=== PATIENT | female | born 1995 | race American Indian/Alaskan Native ===

== ENCOUNTER 2017-12-31 18:32 | Emergency (ER) | payer OTHER ==
[2017-12-31] MEDS ORDERED: NACL 0.9% 1000 ML 1,000 ML IV ONE (20:52)
[2017-12-31 21:11] LABS: Basophils % (Auto) 0.2 % (0.0-1.8); Hematocrit 35.5 % (30.3-42.9); Hemoglobin 12.2 gm/dl (10.1-14.3); Lymphocytes # (Auto) 0.8 K/mm3 (1.2-5.4); Lymphocytes % (Auto) 7.3 % (13.4-35.0); Mean Corpuscular HGB Conc 35 % (30-34); Mean Corpuscular Hemoglobin 30 pg (28-32); Mean Corpuscular Volume 86 fl (79-97); Monocytes # (Auto) 1.1 K/mm3 (0.0-0.8); Monocytes % (Auto) 9.9 % (0.0-7.3); Platelet Count 210 K/mm3 (140-440); Red Blood Count 4.13 M/mm3 (3.65-5.03)
[2017-12-31 21:37] LABS: Alanine Aminotransferase 24 units/L (7-56); Albumin 4.1 g/dL (3.9-5); BUN/Creatinine Ratio 10; Blood Urea Nitrogen 7 mg/dL (7-17); Calcium 9.6 mg/dL (8.4-10.2); Hemolysis Index 3
[2017-12-31] MEDS ORDERED: ZOFRAN IV ONE (21:39)
[2017-12-31] MEDS ORDERED: TORADOL IV ONE (21:49)
--- NOTE | 2017-12-31 21:54 | Emergency Department Report ---
ED N/V/D HPI - General Chief complaint: Nausea/Vomiting/Diarrhea Stated complaint: CHEST PAIN/STOMACH/VOMITING Time Seen by Provider: 12/31/17 21:38 Source: patient Mode of arrival: Ambulatory Limitations: No Limitations - History of Present Illness Initial comments: Patient is a 22-year-old female who presents with nausea, vomiting, diarrhea 1 week . Patient states alert cough and nocturnal fever , sinus pressure, bilateral ear pain . Pain with swallowing unknown temp is 99.8 Fahrenheit in triage today . Patient states last by mouth intake yesterday . Last nausea vomiting this evening . There is no history of asthma or bronchitis MD complaint: nausea, vomiting Onset/Timin -: week(s) Description of Vomiting: food contents Description of Diarrhea: water Associated Abdominal Pain: Yes (cramping ) Location: LLQ, RLQ, flank Severity: moderate Pain Scale: 5 Quality: cramping, aching Consistency: intermittent Improves with: none Worsens with: eating, vomiting, movement Context: sick contacts Associated Symptoms: cough, fever/chills, headaches, malaise, nausea/vomiting - Related Data Previous Rx's Medication Instructions Recorded Last Taken Type Ciprofloxacin HCl [Cipro] 500 mg PO BID 10 Days #20 tablet 12/31/17 Unknown Rx Famotidine [Pepcid] 20 mg PO BID PRN #30 tablet 12/31/17 Unknown Rx Fluconazole [Diflucan] 150 mg PO ONCE #1 tablet 12/31/17 Unknown Rx Ibuprofen 800 mg PO TID PRN #30 tablet 12/31/17 Unknown Rx Allergies Allergy/AdvReac Type Severity Reaction Status Date / Time No Known Allergies Allergy Unverified 12/31/17 18:55 ED Review of Systems ROS: Stated complaint: CHEST PAIN/STOMACH/VOMITING Other details as noted in HPI Constitutional: chills, fever ENT: ear pain, throat pain, congestion Respiratory: cough Cardiovascular: denies: chest pain, palpitations Endocrine: no symptoms reported Gastrointestinal: nausea, vomiting, diarrhea Genitourinary: denies: urgency, dysuria, frequency, hematuria, discharge Musculoskeletal: back pain. denies: joint swelling, arthralgia Skin: denies: rash, lesions Neurological: headache. denies: weakness, numbness, paresthesias, confusion, abnormal gait, vertigo Psychiatric: denies: anxiety, depression Hematological/Lymphatic: denies: easy bleeding, easy bruising ED Past Medical Hx - Past Medical History Previous Medical History?: No - Surgical History Past Surgical History?: No - Social History Smoking Status: Current Every Day Smoker Substance Use Type: None - Medications Home Medications: Home Medications Medication Instructions Recorded Confirmed Last Taken Type Ciprofloxacin HCl [Cipro] 500 mg PO BID 10 Days #20 tablet 12/31/17 Unknown Rx Famotidine [Pepcid] 20 mg PO BID PRN #30 tablet 12/31/17 Unknown Rx Fluconazole [Diflucan] 150 mg PO ONCE #1 tablet 12/31/17 Unknown Rx Ibuprofen 800 mg PO TID PRN #30 tablet 12/31/17 Unknown Rx ED Physical Exam - General Limitations: No Limitations General appearance: alert, in no apparent distress - Head Head exam: Present: atraumatic, normocephalic - Eye Eye exam: Present: normal appearance, PERRL, EOMI Pupils: Present: normal accommodation - ENT ENT exam: Present: mucous membranes moist - Expanded ENT Exam Expanded Ear exam: Present: normal external inspection TM/Canal exam: Erythema: Right TM, Left TM, Canal Tenderness: Right TM, Left TM Mouth exam: Present: other (clear post nasal drip ). Absent: trismus Teeth exam: Present: normal inspection Throat exam: Positive: tonsillar erythema. Negative: tonsillomegaly, tonsillar exudate, R peritonsillar mass, L peritonsillar mass - Neck Neck exam: Present: normal inspection, full ROM. Absent: tenderness, meningismus, lymphadenopathy, thyromegaly - Respiratory Respiratory exam: Present: normal lung sounds bilaterally. Absent: respiratory distress, wheezes, rhonchi, stridor, chest wall tenderness - Cardiovascular Cardiovascular Exam: Present: regular rate, normal rhythm, normal heart sounds. Absent: systolic murmur, diastolic murmur, rubs, gallop - GI/Abdominal GI/Abdominal exam: Present: soft, normal bowel sounds. Absent: tenderness, bruit, hernia - Rectal Rectal exam: Present: deferred - Extremities Exam Extremities exam: Present: normal inspection, normal capillary refill - Back Exam Back exam: Present: normal inspection, full ROM. Absent: tenderness, CVA tenderness (R), CVA tenderness (L), muscle spasm, paraspinal tenderness, vertebral tenderness, rash noted - Neurological Exam Neurological exam: Present: alert, oriented X3, CN II-XII intact, normal gait - Psychiatric Psychiatric exam: Present: normal affect, normal mood - Skin Skin exam: Present: warm, dry, intact, normal color. Absent: rash ED Course Vital Signs 12/31/17 18:52 Temperature 99.8 F H Pulse Rate 105 H Respiratory 16 Rate Blood Pressure 111/70 O2 Sat by Pulse 97 Oximetry ED Medical Decision Making - Lab Data Result diagrams: 12/31/17 20:56 12/31/17 20:56 Laboratory Tests 12/31/17 12/31/17 12/31/17 20:56 20:56 20:56 WBC 11.5 H RBC 4.13 Hgb 12.2 Hct 35.5 MCV 86 MCH 30 MCHC 35 H RDW 13.0 L Plt Count 210 Lymph % (Auto) 7.3 L [place] % (Auto) 9.9 H Eos % (Auto) 0.0 Baso % (Auto) 0.2 Lymph # 0.8 L [place] # 1.1 H Eos # 0.0 Baso # 0.0 Seg Neutrophils % 82.6 H Seg Neutrophils # 9.5 H Sodium 136 L Potassium 3.5 L Chloride 95.8 L Carbon Dioxide 25 Anion Gap 19 BUN 7 Creatinine 0.7 Estimated GFR > 60 BUN/Creatinine Ratio 10 Glucose 103 H Calcium 9.6 Total Bilirubin 1.00 AST 33 ALT 24 Alkaline Phosphatase 90 Total Protein 8.7 H Albumin 4.1 Albumin/Globulin Ratio 0.9 HCG, Qual Negative Urine Color Urine Turbidity Urine pH Ur Specific [place] Urine Protein Urine Glucose (UA) Urine Ketones Urine Blood Urine Nitrite Urine Bilirubin Urine Urobilinogen Ur Leukocyte Esterase Urine WBC (Auto) Urine RBC (Auto) U Epithel Cells (Auto) Urine Bacteria (Auto) Urine Mucus 12/31/17 21:45 WBC RBC Hgb Hct MCV MCH MCHC RDW Plt Count Lymph % (Auto) [place] % (Auto) Eos % (Auto) Baso % (Auto) Lymph # [place] # Eos # Baso # Seg Neutrophils % Seg Neutrophils # Sodium Potassium Chloride Carbon Dioxide Anion Gap BUN Creatinine Estimated GFR BUN/Creatinine Ratio Glucose Calcium Total Bilirubin AST ALT Alkaline Phosphatase Total Protein Albumin Albumin/Globulin Ratio HCG, Qual Urine Color [place] Urine Turbidity Cloudy Urine pH 5.0 Ur Specific [place] 1.021 Urine Protein 100 mg/dl Urine Glucose (UA) Neg Urine Ketones 20 Urine Blood Mod Urine Nitrite Pos Urine Bilirubin Neg Urine Urobilinogen 4.0 Ur Leukocyte Esterase Mod Urine WBC (Auto) 161.0 H Urine RBC (Auto) 26.0 U Epithel Cells (Auto) 13.0 Urine Bacteria (Auto) 4+ Urine Mucus 3+ - Medical Decision Making pt is a 22-year-old -[place] female with UTI . Mild dehydration . Symptoms are improved with medications given in ED presents tolerating by mouth intake without nausea, vomiting at this time . There is no fever or chills. No vaginal pain, no vaginal bleeding , no dysuria or flow. Problem no marked CVA tenderness. This is not likely renal stone . No ST symptoms . Plan treat for UTI, Rocephin 1 g IV piggyback DC'd home Cipro by mouth twice a day 10 days , diflucan and pt gets Yeast infection with abx , ibuprofen, follow up with pcp in 2-3 days, this is not pyelonephritis, or renal stones as there is no hematuria, no fever, no flow problem, no cva tenderness. Patient will continue to hydrate , follow with PCP in 2-3 days. Critical care attestation.: If time is entered above; I have spent that time in minutes in the direct care of this critically ill patient, excluding procedure time. ED Disposition Clinical Impression: UTI (urinary tract infection) Qualifiers: Urinary tract infection type: acute cystitis Hematuria presence: without hematuria Qualified Code(s): N30.00 - Acute cystitis without hematuria Disposition: TO HOME OR SELFCARE Is pt being admited?: No Does the pt Need Aspirin: No Condition: Stable Prescriptions: Ciprofloxacin HCl [Cipro] 500 mg PO BID 10 Days #20 tablet Famotidine [Pepcid] 20 mg PO BID PRN #30 tablet PRN Reason: Nausea And Vomiting Fluconazole [Diflucan] 150 mg PO ONCE #1 tablet Ibuprofen 800 mg PO TID PRN #30 tablet PRN Reason: pain fever Referrals: PRIMARY CARE, [Primary Care Provider] - 3-5 Days Forms: Work/School Release Form(ED) Time of Disposition: 23:02
[2017-12-31 22:08] LABS: Bacteria,Urine 4+ /HPF (Negative); Bilirubin,Urine NEG (Negative); Blood,Urine MOD (Negative); Color,Urine Amber (Yellow); Mucus,Urine 3+ /HPF
[2017-12-31] MEDS ORDERED: ROCEPHIN/NS 1 GM/50 ML 1 GM/50 ML BAG IV ONE (22:30)
[2017-12-31 23:33] VITALS: BP 122/72
== END 2017-12-31 23:31 | disposition home or self-care (01) ==
LOC: ED 18:32
DX: N30.00 Acute cystitis without hematuria (principal); F17.200 Nicotine dependence, unspecified, uncomplicated
CPT/HCPCS: 36415; 80053; 81001; 84703; 85025; 96365; 96375; 99283; J0696; J1885; J2405; J7030

== ENCOUNTER 2018-08-15 12:47 | Emergency (ER) | payer OTHER ==
[2018-08-15 13:17] VITALS: BP 115/69
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
[2018-08-15] MEDS ORDERED: NORCO 5/325 PO ONE (14:37)
[2018-08-15] MEDS ORDERED: IBUPROFEN PO ONE (14:37)
--- NOTE | 2018-08-15 14:37 | XRay Report ---
PROCEDURE: XR RIBS BILAT W/PA CHEST 4+V TECHNIQUE: Bilateral rib radiographs, minimum of 4 views, including PA projection. HISTORY: bilateral rib pain COMPARISONS: None . FINDINGS: Heart: Normal . Mediastinum/Vessels: Normal . Lungs: Normal . Pleural space: Normal . Pneumothorax: None . Bony thorax/ribs: No acute or displaced rib fractures. IMPRESSION: No acute abnormality is seen . This document is electronically signed by Rosy Hoskins MD., August 15 2018 03:35:29 PM ET
== END 2018-08-15 14:45 | disposition home or self-care (01) ==
LOC: ED 12:47
DX: S20.212A Contusion of left front wall of thorax, initial encounter (principal); M79.18 Myalgia, other site; I10 Essential (primary) hypertension; F12.10 Cannabis abuse, uncomplicated; F17.200 Nicotine dependence, unspecified, uncomplicated; Y04.8XXA Assault by other bodily force, initial encounter; Y93.89 Activity, other specified; Y92.89 Other specified places as the place of occurrence of the external cause; Y99.8 Other external cause status
CPT/HCPCS: 71111

== ENCOUNTER 2018-11-09 11:17 | Emergency (ER) | payer OTHER ==
--- NOTE | 2018-11-09 11:44 | Event Note ---
ED Screening Note Date of service: 11/09/18 Time: 11:39 ED Screening Note: 23 y o female presents with bite to right thigh and vaginal swelling and d/c states took benadryl last night and got a rash all over body This initial assessment/diagnostic orders/clinical plan/treatment(s) is/are subject to change based on patients health status, clinical progression and re- assessment by fellow clinical providers in the ED. Further treatment and workup at subsequent clinical providers discretion. Patient/guardian urged not to elope from the ED as their condition may be serious if not clinically assessed and managed. Initial orders include:
[2018-11-09] MEDS ORDERED: DECADRON IM ONE (11:45)
[2018-11-09] MEDS ORDERED: ATARAX PO ONE (12:45)
[2018-11-09] MEDS ORDERED: TYLENOL #3 PO ONE (14:08)
[2018-11-09] MEDS ORDERED: ZOFRAN ODT PO ONE ×2 (14:08→14:14)
[2018-11-09] MEDS ORDERED: ROCEPHIN IM ONE (14:13)
[2018-11-09] MEDS ORDERED: XYLOCAINE 1% MPF 5 mL INFILTRATI ONE (14:13)
--- NOTE | 2018-11-09 14:13 | Emergency Department Report ---
ED General Adult HPI - General Chief complaint: Skin Rash Stated complaint: VAGINAL ISSUE/BACK PAIN Time Seen by Provider: 11/09/18 11:38 Source: patient Mode of arrival: Ambulatory Limitations: No Limitations - History of Present Illness Initial comments: Patient presents to the emergency department with a chief complaint of an insect bite to her right thigh that occurred this morning. Patient also complains of some dysuria and painful lesions to her vagina. Patient also complains of some vaginal discharge and concerns for STDs -: Gradual Consistency: constant Improves with: none Worsens with: none Associated Symptoms: denies other symptoms Treatments Prior to Arrival: none - Related Data Previous Rx's Medication Instructions Recorded Last Taken Type Ciprofloxacin HCl [Cipro] 500 mg PO BID 10 Days #20 tablet 12/31/17 Unknown Rx Famotidine [Pepcid] 20 mg PO BID PRN #30 tablet 12/31/17 Unknown Rx Fluconazole [Diflucan] 150 mg PO ONCE #1 tablet 12/31/17 Unknown Rx Ibuprofen 800 mg PO TID PRN #30 tablet 12/31/17 Unknown Rx Dicyclomine [Bentyl] 40 mg PO Q8H 3 Days #9 tablet 04/09/18 Unknown Rx Famotidine [Pepcid] 20 mg PO BID 5 Days #10 tablet 04/09/18 Unknown Rx Ondansetron [Zofran ODT TAB] 8 mg PO Q8HR PRN #12 tab.rapdis 04/09/18 Unknown Rx HYDROcodone/APAP 5-325 [[place] 1 each PO Q6HR PRN #10 tablet 08/15/18 Unknown Rx 5/325] Ibuprofen [Motrin 800 MG tab] 800 mg PO Q8HR PRN #15 tablet 08/15/18 Unknown Rx Acetaminophen/Codeine [Tylenol 1 tab PO Q6H PRN #15 tab 11/09/18 Unknown Rx /Codeine # 3 tab] Acyclovir [Zovirax Tab] 400 mg PO Q8H #30 tab 11/09/18 Unknown Rx Fluconazole [Diflucan TAB] 150 mg PO ONCE #1 tablet 11/09/18 Unknown Rx Sulfamethoxazole/Trimethoprim 2 each PO BID #28 tablet 11/09/18 Unknown Rx [Bactrim DS TAB] Allergies Allergy/AdvReac Type Severity Reaction Status Date / Time No Known Allergies Allergy Verified 08/15/18 12:49 ED Review of Systems ROS: Stated complaint: VAGINAL ISSUE/BACK PAIN Other details as noted in HPI Comment: All other systems reviewed and negative Constitutional: denies: chills, fever Eyes: denies: eye pain, eye discharge, vision change ENT: denies: ear pain, throat pain Respiratory: denies: cough, shortness of breath, wheezing Cardiovascular: denies: chest pain, palpitations Endocrine: no symptoms reported Gastrointestinal: denies: abdominal pain, nausea, diarrhea Genitourinary: denies: urgency, dysuria, discharge Musculoskeletal: denies: back pain, joint swelling, arthralgia Skin: denies: rash, lesions Neurological: denies: headache, weakness, paresthesias Psychiatric: denies: anxiety, depression Hematological/Lymphatic: denies: easy bleeding, easy bruising ED Past Medical Hx - Past Medical History Previous Medical History?: Yes Hx Hypertension: Yes (no meds) - Surgical History Past Surgical History?: No - Social History Smoking Status: Never Smoker Substance Use Type: None - Medications Home Medications: Home Medications Medication Instructions Recorded Confirmed Last Taken Type Ciprofloxacin HCl [Cipro] 500 mg PO BID 10 Days #20 tablet 12/31/17 Unknown Rx Famotidine [Pepcid] 20 mg PO BID PRN #30 tablet 12/31/17 Unknown Rx Fluconazole [Diflucan] 150 mg PO ONCE #1 tablet 12/31/17 Unknown Rx Ibuprofen 800 mg PO TID PRN #30 tablet 12/31/17 Unknown Rx Dicyclomine [Bentyl] 40 mg PO Q8H 3 Days #9 tablet 04/09/18 Unknown Rx Famotidine [Pepcid] 20 mg PO BID 5 Days #10 tablet 04/09/18 Unknown Rx Ondansetron [Zofran ODT TAB] 8 mg PO Q8HR PRN #12 tab.rapdis 04/09/18 Unknown Rx HYDROcodone/APAP 5-325 [[place] 1 each PO Q6HR PRN #10 tablet 08/15/18 Unknown Rx 5/325] Ibuprofen [Motrin 800 MG tab] 800 mg PO Q8HR PRN #15 tablet 08/15/18 Unknown Rx Acetaminophen/Codeine [Tylenol 1 tab PO Q6H PRN #15 tab 11/09/18 Unknown Rx /Codeine # 3 tab] Acyclovir [Zovirax Tab] 400 mg PO Q8H #30 tab 11/09/18 Unknown Rx Fluconazole [Diflucan TAB] 150 mg PO ONCE #1 tablet 11/09/18 Unknown Rx Sulfamethoxazole/Trimethoprim 2 each PO BID #28 tablet 11/09/18 Unknown Rx [Bactrim DS TAB] ED Physical Exam - General Limitations: No Limitations General appearance: alert, in no apparent distress - Head Head exam: Present: atraumatic, normocephalic - Eye Eye exam: Present: normal appearance - ENT ENT exam: Present: mucous membranes moist - Neck Neck exam: Present: normal inspection - Respiratory Respiratory exam: Present: normal lung sounds bilaterally. Absent: respiratory distress - Cardiovascular Cardiovascular Exam: Present: regular rate, normal rhythm. Absent: systolic murmur, diastolic murmur, rubs, gallop - GI/Abdominal GI/Abdominal exam: Present: soft, normal bowel sounds. 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 Absent: motor sensory deficit - Psychiatric Psychiatric exam: Present: normal affect, normal mood - Skin Skin exam: Present: warm, dry, intact, normal color, other (Draining abscess of the right thigh with surrounding cellulitis) ED Course Vital Signs 11/09/18 11:35 Temperature 98.6 F Pulse Rate 75 Respiratory 18 Rate Blood Pressure 112/74 O2 Sat by Pulse 100 Oximetry ED Medical Decision Making - Medical Decision Making discussed results with patient Critical care attestation.: If time is entered above; I have spent that time in minutes in the direct care of this critically ill patient, excluding procedure time. ED Disposition Clinical Impression: Cellulitis, Dysuria, Vaginal discharge, Vaginal lesion Disposition: DC- TO HOME OR SELFCARE Is pt being admited?: No Does the pt Need Aspirin: No Condition: Stable Instructions: Safe Sex (ED), Sexually Transmitted Diseases (ED), Genital Herpes Simplex (ED) Additional Instructions: return if worse Prescriptions: Sulfamethoxazole/Trimethoprim [Bactrim DS TAB] 2 each PO BID #28 tablet Fluconazole [Diflucan TAB] 150 mg PO ONCE #1 tablet Acyclovir [Zovirax Tab] 400 mg PO Q8H #30 tab Referrals: PRIMARY CARE, [Primary Care Provider] - 3-5 Days
[2018-11-09] MEDS ORDERED: ZITHROMAX PO ONE (14:14)
[2018-11-09] MEDS ORDERED: FLAGYL PO ONE (14:14)
[2018-11-09 14:40] LABS: Bilirubin,Urine NEG (Negative); Blood,Urine NEG (Negative); Color,Urine Yellow (Yellow); Mucus,Urine FEW /HPF; Protein,Urine <15 mg/dL mg/dL (Negative)
[2018-11-09 14:47] LABS: HCG Qualitative,Urine Negative (Negative)
[2018-11-09 14:52] VITALS: BP 133/68
== END 2018-11-09 14:50 | disposition home or self-care (01) ==
LOC: ED 11:17
DX: N76.2 Acute vulvitis (principal); R30.0 Dysuria; L02.415 Cutaneous abscess of right lower limb; L03.115 Cellulitis of right lower limb; I10 Essential (primary) hypertension; Z79.899 Other long term (current) drug therapy
CPT/HCPCS: 81001; 81025; 96372; 99283; J0696; J1100; Q0162

== ENCOUNTER 2019-04-03 10:53 | Emergency (ER) | payer OTHER ==
[2019-04-03 11:06] VITALS: BP 130/77
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
== END 2019-04-03 11:51 | disposition left against medical advice (07) ==
LOC: ED 10:53
DX: M79.10 Myalgia, unspecified site (principal)
CPT/HCPCS: 99281

== ENCOUNTER 2019-05-29 05:18 | Emergency (ER) | payer OTHER ==
[2019-05-29 05:29] VITALS: BP 104/64
[2019-05-29 05:50] LABS: Basophils # (Auto) 0.1 K/mm3 (0.0-0.1); Basophils % (Auto) 0.9 % (0.0-1.8); Eosinophils # (Auto) 0.1 K/mm3 (0.0-0.4); Eosinophils % (Auto) 1.3 % (0.0-4.3); Hematocrit 39.9 % (30.3-42.9); Hemoglobin 12.9 gm/dl (10.1-14.3); Lymphocytes # (Auto) 2.5 K/mm3 (1.2-5.4); Lymphocytes % (Auto) 28.6 % (13.4-35.0); Mean Corpuscular HGB Conc 32 % (30-34); Mean Corpuscular Volume 90 fl (79-97); Monocytes # (Auto) 0.5 K/mm3 (0.0-0.8); Monocytes % (Auto) 5.3 % (0.0-7.3); Platelet Count 293 K/mm3 (140-440); Red Blood Count 4.42 M/mm3 (3.65-5.03); Red Cell Distribution Width 14.2 % (13.2-15.2)
[2019-05-29] MEDS ORDERED: FAMOTIDINE 20 MG TAB PO ONE (06:26)
[2019-05-29] MEDS ORDERED: ONDANSETRON 4 MG ODT TAB PO ONE (06:26)
[2019-05-29] MEDS ORDERED: ACETAMINOPHEN 500 MG TAB PO ONE (06:26)
[2019-05-29] MEDS ORDERED: SODIUM CHLORIDE 0.9% 1000 ML 1,000 ML IV ONE (06:34)
[2019-05-29 06:37] LABS: Bilirubin,Urine NEG (Negative); Blood,Urine LG (Negative); Color,Urine Yellow (Yellow); RBC,Urine > 182.0 /HPF (0.0-6.0); Urobilinogen,Urine < 2.0 mg/dL (<2.0)
[2019-05-29 06:39] LABS: Mucus,Urine FEW /HPF
[2019-05-29] MEDS ORDERED: dexAMETHasone 20 MG/5 ML VIAL ONE (07:27)
[2019-05-29 07:32] LABS: Alanine Aminotransferase 15 units/L (7-56); Albumin 4.2 g/dL (3.9-5); BUN/Creatinine Ratio 15; Blood Urea Nitrogen 9 mg/dL (7-17); Calcium 9.5 mg/dL (8.4-10.2); Hemolysis Index 8
--- NOTE | 2019-05-29 09:05 | Emergency Department Report ---
ED HPI - General Chief complaint: Vaginal Bleeding Stated complaint: CRAMPING,BLEEDING,12 WKS PREG Time Seen by Provider: 05/29/19 07:17 Source: patient Mode of arrival: Ambulatory Limitations: No Limitations - History of Present Illness Initial comments: This is a 23-year-old female nontoxic, well nourished in appearance, no acute signs of distress presents to the ED with c/o of vaginal bleeding and pelvic pain x1 day. Patient stated has been confirmed 12 weeks by her OB. Stated has an appointment tomorrow with her OB. Patient stated has some pelvic cramping pain. Patient denies any vaginal discharge or foul odor. Patien t denies any nausea, vomiting, chest pain, shortness of breathe, fever, chills, headache, stiff neck, numbness, tingling. Patient denies any urinary symptoms. Patient denies any allergies or PMH. MD Complaint: vaginal bleeding, other (pelvic pain) -: days(s) Location: pelvis Radiation: none Severity: mild Severity scale (0 -10): 3 Quality: cramping, aching Consistency: constant Improves with: none Worsens with: none Associated symptoms: vaginal bleeding, other (pelvic pain). denies: nausea/vomiting, vaginal discharge, abdominal pain, dysuria, headache, vision changes, malaise, dysparuenia, rash, seizure, shortness of breath, syncope, weakness Vaginal bleeding: light :: Yes Number of weeks : 12 Pre- care: followed by OB - Related Data Previous Rx's Medication Instructions Recorded Last Taken Type Ciprofloxacin HCl [Cipro] 500 mg PO BID 10 Days #20 tablet 12/31/17 Unknown Rx Famotidine [Pepcid] 20 mg PO BID PRN #30 tablet 12/31/17 Unknown Rx Fluconazole [Diflucan] 150 mg PO ONCE #1 tablet 12/31/17 Unknown Rx Ibuprofen 800 mg PO TID PRN #30 tablet 12/31/17 Unknown Rx Dicyclomine [Bentyl] 40 mg PO Q8H 3 Days #9 tablet 04/09/18 Unknown Rx Famotidine [Pepcid] 20 mg PO BID 5 Days #10 tablet 04/09/18 Unknown Rx Ondansetron [Zofran ODT TAB] 8 mg PO Q8HR PRN #12 tab.rapdis 04/09/18 Unknown Rx HYDROcodone/APAP 5-325 [[place] 1 each PO Q6HR PRN #10 tablet 08/15/18 Unknown Rx 5/325] Ibuprofen [Motrin 800 MG tab] 800 mg PO Q8HR PRN #15 tablet 08/15/18 Unknown Rx Acetaminophen/Codeine [Tylenol 1 tab PO Q6H PRN #15 tab 11/09/18 Unknown Rx /Codeine # 3 tab] Acyclovir [Zovirax Tab] 400 mg PO Q8H #30 tab 11/09/18 Unknown Rx Fluconazole [Diflucan TAB] 150 mg PO ONCE #1 tablet 11/09/18 Unknown Rx Sulfamethoxazole/Trimethoprim 2 each PO BID #28 tablet 11/09/18 Unknown Rx [Bactrim DS TAB] Acetaminophen [8 Hour 650 mg PO Q8H PRN #20 tablet.er 05/29/19 Unknown Rx Acetaminophen] Ondansetron [Zofran Odt] 4 mg PO Q8HR PRN #20 tab.rapdis 05/29/19 Unknown Rx Allergies Allergy/AdvReac Type Severity Reaction Status Date / Time No Known Allergies Allergy Verified 08/15/18 12:49 ED Review of Systems ROS: Stated complaint: CRAMPING,BLEEDING,12 WKS PREG Other details as noted in HPI Constitutional: denies: chills, fever Eyes: denies: eye pain, eye discharge, vision change ENT: denies: ear pain, throat pain Respiratory: denies: cough, shortness of breath, wheezing Cardiovascular: denies: chest pain, palpitations Endocrine: no symptoms reported Gastrointestinal: denies: abdominal pain, nausea, diarrhea Genitourinary: abnormal menses. denies: urgency, dysuria, discharge Musculoskeletal: denies: back pain, joint swelling, arthralgia Skin: denies: rash, lesions Neurological: denies: headache, weakness, paresthesias Psychiatric: denies: anxiety, depression Hematological/Lymphatic: denies: easy bleeding, easy bruising ED Past Medical Hx - Past Medical History Previous Medical History?: Yes Hx Hypertension: Yes (no meds) - Surgical History Past Surgical History?: No - Social History Smoking Status: Never Smoker Substance Use Type: None - Medications Home Medications: Home Medications Medication Instructions Recorded Confirmed Last Taken Type Ciprofloxacin HCl [Cipro] 500 mg PO BID 10 Days #20 tablet 12/31/17 Unknown Rx Famotidine [Pepcid] 20 mg PO BID PRN #30 tablet 12/31/17 Unknown Rx Fluconazole [Diflucan] 150 mg PO ONCE #1 tablet 12/31/17 Unknown Rx Ibuprofen 800 mg PO TID PRN #30 tablet 12/31/17 Unknown Rx Dicyclomine [Bentyl] 40 mg PO Q8H 3 Days #9 tablet 04/09/18 Unknown Rx Famotidine [Pepcid] 20 mg PO BID 5 Days #10 tablet 04/09/18 Unknown Rx Ondansetron [Zofran ODT TAB] 8 mg PO Q8HR PRN #12 tab.rapdis 04/09/18 Unknown Rx HYDROcodone/APAP 5-325 [[place] 1 each PO Q6HR PRN #10 tablet 08/15/18 Unknown Rx 5/325] Ibuprofen [Motrin 800 MG tab] 800 mg PO Q8HR PRN #15 tablet 08/15/18 Unknown Rx Acetaminophen/Codeine [Tylenol 1 tab PO Q6H PRN #15 tab 11/09/18 Unknown Rx /Codeine # 3 tab] Acyclovir [Zovirax Tab] 400 mg PO Q8H #30 tab 11/09/18 Unknown Rx Fluconazole [Diflucan TAB] 150 mg PO ONCE #1 tablet 11/09/18 Unknown Rx Sulfamethoxazole/Trimethoprim 2 each PO BID #28 tablet 11/09/18 Unknown Rx [Bactrim DS TAB] Acetaminophen [8 Hour 650 mg PO Q8H PRN #20 tablet.er 05/29/19 Unknown Rx Acetaminophen] Ondansetron [Zofran Odt] 4 mg PO Q8HR PRN #20 tab.rapdis 05/29/19 Unknown Rx ED Physical Exam - General Limitations: No Limitations General appearance: alert, in no apparent distress - Head Head exam: Present: atraumatic, normocephalic - Neck Neck exam: Present: normal inspection, full ROM. Absent: tenderness, meningismus, lymphadenopathy - Respiratory Respiratory exam: Present: normal lung sounds bilaterally. Absent: respiratory distress, wheezes, rales, rhonchi, stridor, chest wall tenderness, accessory muscle use, decreased breath sounds, prolonged expiratory - Cardiovascular Cardiovascular Exam: Present: regular rate, normal rhythm, normal heart sounds. Absent: irregular rhythm, systolic murmur, diastolic murmur, rubs, gallop - GI/Abdominal GI/Abdominal exam: Present: soft, normal bowel sounds. Absent: distended, tenderness, guarding, rebound, rigid, diminished bowel sounds - Extremities Exam Extremities exam: Present: normal inspection, full ROM - Back Exam Back exam: Present: normal inspection, full ROM. Absent: tenderness, CVA tenderness (R), CVA tenderness (L), muscle spasm, paraspinal tenderness, vertebral tenderness, rash noted - Neurological Exam Neurological exam: Present: alert, oriented X3, normal gait - Psychiatric Psychiatric exam: Present: normal affect, normal mood - Skin Skin exam: Present: warm, dry, intact, normal color. Absent: rash ED Course Vital Signs 05/29/19 05:22 Temperature 98.3 F Pulse Rate 96 H Respiratory 18 Rate Blood Pressure 104/64 O2 Sat by Pulse 97 Oximetry - Reevaluation(s) Reevaluation #1: 05/29/19 09:46 Patient is speaking in full sentences with no signs of distress noted. ED Medical Decision Making - Lab Data Result diagrams: 05/29/19 05:27 05/29/19 06:56 - Medical Decision Making This is a 23-year-old female presents with spontaneous miscarriage. Patient is stable and was examined by me. Due to patient stating that she is currently has a confirmed 12 weeks I believe this is a spontaneous miscarriage. Patient had a ultrasound done last month and was told had a heartbeat as well as was told that she was about 6 to 7 weeks . Ultrasound today shows that she is currently 7 weeks with no heartbeat. Normal abdominal exam. US OB obtained and dictated by the radiologist. Ua obtained. Quantative serum test obtained. Patient notified of the US report with no questions noted by the patient. Patient does have a CRACKING MACHINE OPERATOR appointment tomorrow schedule with her OB. Patient is Rh+. At time of discharge, the patient does not seem toxic or ill in appearance. No acute signs of distress noted. Patient agrees to discharge treatment plan of care. No further questions noted by the patient. Critical care attestation.: If time is entered above; I have spent that time in minutes in the direct care of this critically ill patient, excluding procedure time. ED Disposition Clinical Impression: Spontaneous miscarriage Disposition: DC-01 TO HOME OR SELFCARE Is pt being admited?: No Does the pt Need Aspirin: No Condition: Stable Instructions: Spontaneous Miscarriage (ED) Additional Instructions: Follow-up with a CRACKING MACHINE OPERATOR appointment tomorrow as you stated have an appointment or if symptoms worsen and continue return to emergency room as soon as possible. Prescriptions: Acetaminophen [8 Hour Acetaminophen] 650 mg PO Q8H PRN #20 tablet.er PRN Reason: Pain , Severe (7-10) Ondansetron [Zofran Odt] 4 mg PO Q8HR PRN #20 tab.rapdis PRN Reason: Nausea Referrals: PRIMARY CARE, [Primary Care Provider] - 3-5 Days KENAN SOFIA MD [Staff Physician] - 3-5 Days [facility] [Provider Group] - 3-5 Days Forms: Work/School Release Form(ED)
--- NOTE | 2019-05-29 09:11 | Ultrasound Report ---
Obstetrical ultrasound. HISTORY: Pelvic pain. Vaginal bleeding. FINDINGS: Imaging was performed transabdominally and endovaginally. The uterus contains a pole dated 7 weeks 6 days. No cardiac activity is identified. Right ovary measures 2.6 x 1.1 x 3.1 cm. Left ovary measures 1.9 x 1.1 x 2.5 cm. Negative for adnexal mass or fluid. IMPRESSION: Early intrauterine dated 7 weeks 6 days. No cardiac activity. Signer Name: Kurt Baker MD Signed: 05/29/2019 9:07 AM Workstation Name: [id number]
[2019-05-29] MEDS ORDERED: dexAMETHasone 20 MG/5 ML VIAL IV ONE (16:00)
== END 2019-05-29 09:57 | disposition home or self-care (01) ==
LOC: ED 05:18
DX: O03.9 Complete or unspecified spontaneous abortion without complication (principal); O26.891 Other specified pregnancy related conditions, first trimester; I10 Essential (primary) hypertension; Z79.899 Other long term (current) drug therapy; Z3A.12 12 weeks gestation of pregnancy
CPT/HCPCS: 36415; 76801; 76817; 80053; 81001; 84702; 85025; 86900; 86901; 87086; 99284; J1100; J7030; Q0162

== ENCOUNTER 2020-02-10 08:48 | Emergency (ER) | payer OTHER ==
[2020-02-10 08:58] VITALS: BP 99/65
[2020-02-10] MEDS ORDERED: ACETAMINOPHEN 325 MG TAB PO ONE (10:57)
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
== END 2020-02-10 12:32 | disposition home or self-care (01) ==
LOC: ED 08:48
DX: S29.012A Strain of muscle and tendon of back wall of thorax, initial encounter (principal); S09.90XA Unspecified injury of head, initial encounter; M25.561 Pain in right knee; S00.81XA Abrasion of other part of head, initial encounter; S20.319A Abrasion of unspecified front wall of thorax, initial encounter; V89.2XXA Person injured in unspecified motor-vehicle accident, traffic, initial encounter; Y93.89 Activity, other specified; Y92.410 Unspecified street and highway as the place of occurrence of the external cause; Y99.8 Other external cause status
CPT/HCPCS: 70450